=== PATIENT | female | born 1995 | race Caucasian/White ===

== ENCOUNTER 2020-08-26 10:43 | Emergency (ER) | payer MEDICAID ==
[~2020-08-26] VITALS: Ht 170 cm; Wt 134.0 kg
--- NOTE | 2020-08-26 10:59 | ED Integumentary General ---
General Chief Complaint: Skin/Wound Problems Stated Complaint: RECTAL ABCESS 26 WEEKS Nursing Triage Note: C/O ABSCESS ON L SIDE ON THIGH,RECTAL REGION Source: patient Exam Limitations: no limitations History of Present Illness Date Seen by Provider: August 26, 2020 Time Seen by Provider: 10:48 Initial Comments Patient is a 25-year-old female who is approximately 26 weeks with a twin gestation followed by Dr. Merino who presents to the emergency department with a chief complaint of an abscess to her left buttock. Patient states its been there for about 3 days. She has been taking Tylenol for pain she has been using warm compresses and baths to try and alleviate her symptoms. She states currently the pain is a "3 or 4" it is occasionally higher than that. No drainage from the area. She has not had anything like this before she states she does not believe she is diabetic she is scheduled to have a glucose tolerance test this coming Wednesday. She is also scheduled to see Dr. Merino this coming Wednesday. She states she is feeling babies move. She is having no issues. All other review of systems reviewed and negative except as stated above. Timing/Duration: getting worse Severity: moderate Location: genitalia (Buttock) Associated Symptoms: denies symptoms Allergies and Home Medications Allergies Coded Allergies: No Known Drug Allergies (Unverified , 08/26/20) Home Medications No Active Prescriptions or Reported Meds Patient Home Medication List Home Medication List Reviewed: Yes Review of Systems Review of Systems Constitutional: see HPI Respiratory: no symptoms reported Cardiovascular: no symptoms reported Gastrointestinal: no symptoms reported Genitourinary: no symptoms reported Musculoskeletal: no symptoms reported Skin: other (Abscess left buttock) All Other Systems Reviewed Negative Unless Noted: Yes Past Veinmhz-Nfrygt-Bpujji Hx Patient Social History Alcohol Use: Denies Use Smoking Status: Never a Smoker 2nd Hand Smoke Exposure: No Recent Infectious Disease Expo: No Past Medical History Surgeries: Yes Gallbladder Respiratory: No Cardiac: No Neurological: No Genitourinary: No Gastrointestinal: No Musculoskeletal: No Endocrine: No HEENT: No Cancer: No Psychosocial: No Integumentary: No Blood Disorders: No Physical Exam Vital Signs Vital Signs - First Documented 08/26/20 10:51 Temp 36.7 Pulse 13 Resp 18 B/P (MAP) 148/87 (107) Pulse Ox 98 Capillary Refill : Less Than 3 Seconds General Appearance: WD/WN, no apparent distress Cardiovascular: regular rate, rhythm Respiratory: no respiratory distress, no accessory muscle use Gastrointestinal: non tender, soft, other (Obese) Extremities: normal range of motion, normal inspection Neurologic/Psychiatric: alert, normal mood/affect, oriented x 3 Skin: normal color, warm/dry Skin Problem Location: other (Left buttock) Skin Problem Character: abscess (Patient has a 2 cm abscess on the left buttock at the gluteal cleft mid buttock, slightly adjacent to the rectum but not involving the rectum. It is fluctuant and tender to palpation. Mild overlying erythema), erythema Procedures/Interventions I&D : Site: right buttock Blade Size: 11 I & D Procedure: betadine prep, gauze wick placed Packing/Drain: Plain Packing 03/30 (04/01) Progress/Results/Core Measures Results/Orders My Orders Orders - MERLE ALLEN MD Lidocaine 1% Inj 20 Ml (Xylocaine 1% Inj (08/26/20 11:00) Wound Culture (08/26/20 11:00) Hydrocodone/Apap 5/325 Tablet (Lortab 5 (08/26/20 11:12) Medications Given in ED Current Medications Medications Dose Ordered Sig/Alley Route Start Time Stop Time Status Last Admin Dose Admin Acetaminophen/ Hydrocodone Bitart 1 ea STK-MED ONCE .ROUTE 08/26/20 11:12 08/26/20 11:22 DC 08/26/20 11:30 1 EA Lidocaine HCl 20 ml ONCE ONCE INJ 08/26/20 11:00 08/26/20 11:01 DC 08/26/20 11:12 10 ML Vital Signs/I&O 08/26/20 10:51 Temp 36.7 Pulse 13 Resp 18 B/P (MAP) 148/87 (107) Pulse Ox 98 Blood Pressure Mean: 107 Departure Impression Primary Impression: Cutaneous abscess Qualified Codes: L02.31 - Cutaneous abscess of buttock Disposition: HOME, SELF-CARE Condition: Stable Departure-Patient Inst. Decision time for Depature: :31 Referrals: BETTIE MERINO DO (PCP/Family) Primary Care Physician Patient Instructions: Abscess Incision and Drainage Add. Discharge Instructions: Keep the area clean dry and covered until you follow-up with Dr. Merino on Wednesday. The packing will need to be removed and replaced. Please take the antibiotics 3 times a day for the next 7 days. You can wash the area gently with soap and water. Tylenol as needed for pain. I have given you a few hydrocodone to take as needed for more severe pain. Please do not take regular Tylenol and the hydrocodone together as they both contain Tylenol. Return to the emergency room for any fevers, abdominal pain, nausea vomiting or any other emergent concerning symptoms. Scripts Hydrocodone/Acetaminophen (Hydrocodone-Acetamin 5-325 mg) 1 Each Tablet 1 TAB PO Q6H PRN for PAIN-MODERATE (5-7), #10 TAB Prov: MERLE ALLEN MD 08/26/20 Cephalexin (Cephalexin) 500 Mg Tablet 500 MG PO TID, #21 TAB Prov: MERLE ALLEN MD 08/26/20 MERLE ALLEN MD August 26, 2020 10:59
[2020-08-26] MEDS ORDERED: LIDOCAINE 1% INJ 20 ML 20 ML VIAL INJ ONE (11:00)
[2020-08-26] MEDS ORDERED: HYDROcodone/APAP 5 MG/325 MG (LORTAB) TAB ONE (11:12)
[2020-08-26] MEDS ORDERED: ACHD5005 PO (11:33)
[2020-08-26] MEDS ORDERED: CEPH500T PO (11:33)
[2020-08-26 11:38] VITALS: BP 148/87
== END 2020-08-26 11:38 | disposition home or self-care (01) ==
LOC: ER 10:47
DX: O99.712 Diseases of the skin and subcutaneous tissue complicating pregnancy, second trimester (principal); L02.31 Cutaneous abscess of buttock; Z3A.26 26 weeks gestation of pregnancy
CPT/HCPCS: 87070; 87205; 99283

== ENCOUNTER → 2020-09-18 | Outpatient (CLI) | payer MEDICAID ==
[~2020-09-18] MED LIST: ACHD5005 PO; CEPH500T PO
--- NOTE | 2020-09-18 14:25 | Diagnostic Imaging Report ---
INDICATION: Twin , evaluate growth. TECHNIQUE: Multiple real-time grayscale images were obtained over the gravid uterus. COMPARISON: None FINDINGS: Twin live intrauterine is noted. Twin A is in a cephalic presentation with head to the maternal left. heart rate was recorded at 144 bpm. Placenta is anterior. Amniotic fluid index is 10.5 cm. Twin B is in a breech presentation to the maternal right. heart rate was recorded at 153 bpm. Placenta is posterior. Amniotic fluid index is 10.5 cm. Biometrical measurements are as follows: Biparietal 7.46 cm, age 30 weeks 0 days. Head circumference 28.95 cm, age 32 weeks 0 days. Abdominal circumference 27.41 cm, age 31 weeks 4 days. Femur length 5.73 cm, age 30 weeks 1 days. Sonographic estimate age: 31 weeks 0 days. Sonographic estimated date of delivery: 11/20/2020. Estimated Weight: 1669 gm (+/- 244 gm). LMP percentile: 91%. heart rate: 144 beats per minute. number: 1 of 2. IMPRESSION: Twin live intrauterine approximately 31 weeks gestational age. No complicating features are detected. Estimated date of confinement sonographically is a 11/20/2020. Dictated by: Dictated on workstation # [id number]
--- NOTE | 2020-09-20 14:09 | Diagnostic Imaging Report ---
INDICATION: Twin , evaluate growth. TECHNIQUE: Multiple real-time grayscale images were obtained over the gravid uterus. COMPARISON: None FINDINGS: Twin live intrauterine is noted. Twin A is in a cephalic presentation with head to the maternal left. heart rate was recorded at 144 bpm. Placenta is anterior. Amniotic fluid index is 10.5 cm. Twin B is in a breech presentation to the maternal right. heart rate was recorded at 153 bpm. Placenta is posterior. Amniotic fluid index is 10.5 cm. Biometrical measurements are as follows: Biparietal 7.46 cm, age 30 weeks 0 days. Head circumference 28.95 cm, age 32 weeks 0 days. Abdominal circumference 27.41 cm, age 31 weeks 4 days. Femur length 5.73 cm, age 30 weeks 1 days. Sonographic estimate age: 31 weeks 0 days. Sonographic estimated date of delivery: 11/20/2020. Estimated Weight: 1669 gm (+/- 244 gm). LMP percentile: 91%. heart rate: 144 beats per minute. number: 1 of 2. IMPRESSION: Twin live intrauterine approximately 31 weeks gestational age. No complicating features are detected. Estimated date of confinement sonographically is a 11/20/2020. Biometrical measurements are as follows: Biparietal 7.83 cm, age 31 weeks 3 days. Head circumference 28.27 cm, age 31 weeks 1 days. Abdominal circumference 27.04 cm, age 31 weeks 1 days. Femur length 6.05 cm, age 31 weeks 4 days. Sonographic estimate age: 31 weeks 3 days. Sonographic estimated date of delivery: 11/17/2020. Estimated Weight: 1728 gm (+/- 252 gm). LMP percentile: 95%. heart rate: 153 beats per minute. number: 2 of 2. IMPRESSION: Dictated by: Dictated on workstation # [id number]
== END ==
LOC: RAD 12:30
PROVIDERS: ATTEND Obstetrics & Gynecology
DX: O30.043 Twin pregnancy, dichorionic/diamniotic, third trimester (principal); Z3A.31 31 weeks gestation of pregnancy
CPT/HCPCS: 76805; 76810

== ENCOUNTER → 2020-10-22 | Outpatient (CLI) | payer MEDICAID ==
[~2020-10-22] MED LIST changes: +ASPI-999 PO; +PREN-37 PO
--- NOTE | 2020-10-22 14:37 | Diagnostic Imaging Report ---
INDICATION: Follow-up growth. Twin gestation. TECHNIQUE: Multiple real-time grayscale images were obtained over the gravid uterus. COMPARISON: 09/18/2020. FINDINGS: Live diamniotic, dichorionic twin intrauterine is visualized. Baby A is in cephalic presentation to the maternal left. COLT is normal with the total COLT measuring 9 cm. The placenta is anterior and to the left. heart tones measure 161 bpm. Biometrical measurements are as follows: Biparietal 8.4 cm, age 33 weeks 6 days. Head circumference 32.7 cm, age 37 weeks 1 days. Abdominal circumference 33.4 cm, age 37 weeks 3 days. Femur length 6.7 cm, age 34 weeks 3 days. Sonographic estimate age: 35 weeks 5 days. Sonographic estimated date of delivery: 11/21/20. Estimated Weight: 2871 gm (+/- 419 gm). LMP percentile: 93%. heart rate: 161 beats per minute. number: 1 of 2. Views of the adnexa are unremarkable. IMPRESSION: 1. Live diamnionic dichorionic twin intrauterine . Baby A measures 35 weeks 5 days, within range with clinical dates. Recommend follow-up as indicated. Dictated by: Dictated on workstation # [id number]
--- NOTE | 2020-10-22 14:41 | Diagnostic Imaging Report ---
INDICATION: Evaluate growth. Twin . TECHNIQUE: Multiple real-time grayscale images were obtained over the gravid uterus. COMPARISON: 09/18/2020. FINDINGS: Live diamniotic, dichorionic twin intrauterine is visualized. Baby B measures 36 weeks 2 days. Baby B is in cephalic presentation to the maternal right. The amniotic fluid measures 12.8 cm. The placenta is anterior and right. heart tones measure 167 bpm. Biometrical measurements are as follows: Biparietal 8.7 cm, age 35 weeks 1 days. Head circumference 32.3 cm, age 36 weeks 4 days. Abdominal circumference 34 cm, age 38 weeks 0 days. Femur length 6.9 cm, age 35 weeks 2 days. Sonographic estimate age: 36 weeks 2 days. Sonographic estimated date of delivery: 11/17/2020. Estimated Weight: 3039 gm (+/- 444 gm). LMP percentile: 98%. heart rate: 165 beats per minute. number: 2 of 2. The bilateral adnexa have a normal appearance. IMPRESSION: 1. Live diamniotic, dichorionic twin intrauterine . BPD measures 36 weeks 2 days with an estimated due date of 11/17/2020. These are somewhat discordant with the clinical dates. Recommend follow-up as indicated. Dictated by: Dictated on workstation # [id number]
== END ==
LOC: RAD 13:00
PROVIDERS: ATTEND Obstetrics & Gynecology
DX: O30.043 Twin pregnancy, dichorionic/diamniotic, third trimester (principal); Z3A.36 36 weeks gestation of pregnancy
CPT/HCPCS: 76805; 76810

== ENCOUNTER 2020-10-25 00:24 | Outpatient (CLI) | payer MEDICAID ==
[~2020-10-25] VITALS: Ht 170 cm; Wt 134.2 kg
[2020-10-25] VITALS (7 sets, daily range): BP systolic 124–158; BP diastolic 82–100
[~2020-10-25 00:24] MED LIST changes: -ASPI-999 PO; -PREN-37 PO
[2020-10-25 01:08] LABS: BILIRUBIN,URINE NEGATIVE (NEGATIVE); CLARITY,URINE SL CLOUDY; COLOR,URINE YELLOW; GLUCOSE, URINE (UA) NEGATIVE (NEGATIVE); KETONES,URINE NEGATIVE (NEGATIVE); LEUKOCYTE ESTERASE ,URINE NEGATIVE (NEGATIVE); NITRITE,URINE NEGATIVE (NEGATIVE); PH,URINE 6.5 (5-9); PROTEIN,URINE TRACE (NEGATIVE)
[2020-10-25 01:16] LABS: BACTERIA,URINE FEW /HPF; HYALINE CASTS, URINE RARE /LPF
[2020-10-25 01:50] LABS: BASOPHILS % (AUTO) 0 % (0-10); EOSINOPHILS # (AUTO) 0.1 10^3/uL (0.0-0.3); EOSINOPHILS % (AUTO) 1 % (0-10); HEMATOCRIT 33 % (35-52); HEMOGLOBIN 10.7 g/dL (11.5-16.0); LYMPHOCYTES # (AUTO) 2.5 10^3/uL (1.0-4.0); LYMPHOCYTES % (AUTO) 21 % (12-44); MEAN CORPUSCULAR HEMOGLOBIN 28 pg (25-34); MEAN CORPUSCULAR HGB CONC 33 g/dL (32-36); MEAN CORPUSCULAR VOLUME 85 fL (80-99); MEAN PLATELET VOLUME 11.5 fL (9.0-12.2); MONOCYTES # (AUTO) 0.6 10^3/uL (0.0-1.0); MONOCYTES % (AUTO) 5 % (0-12); NEUTROPHILS # (AUTO) 8.8 10^3/uL (1.8-7.8); NEUTROPHILS % (AUTO) 73 % (42-75); PLATELET COUNT 291 10^3/uL (130-400); WHITE BLOOD COUNT 12.1 10^3/uL (4.3-11.0)
[2020-10-25 02:01] LABS: ALBUMIN 3.1 GM/DL (3.2-4.5); POTASSIUM 3.9 MMOL/L (3.6-5.0)
[2020-10-25 02:04] LABS: TOTAL PROTEIN 6.7 GM/DL (6.4-8.2)
[2020-10-25 02:06] LABS: BILIRUBIN,TOTAL 0.3 MG/DL (0.1-1.0)
[2020-10-25 02:07] LABS: CREATININE SERUM 0.65 MG/DL (0.60-1.30)
[2020-10-25 02:11] LABS: URIC ACID 4.5 MG/DL (2.6-7.2)
[2020-10-25] MEDS ORDERED: PREN-37 PO (02:57)
[2020-10-25] MEDS ORDERED: ASPI-999 PO (02:57)
== END 2020-10-25 03:20 | disposition home or self-care (01) ==
LOC: WSo 00:24 → LDRP 00:25 → WSo 03:20
PROVIDERS: ATTEND Obstetrics & Gynecology
DX: O21.9 Vomiting of pregnancy, unspecified (principal); Z3A.34 34 weeks gestation of pregnancy
CPT/HCPCS: 80053; 81000; 82570; 84156; 84550; 85025; G0463; 36415; 99213

== ENCOUNTER 2020-11-04 14:20 | Inpatient (IN) | payer MEDICAID ==
[2020-11-04] VITALS (54 sets, daily range): BP systolic 98–164; BP diastolic 49–94
[~2020-11-04] VITALS: Ht 170 cm; Wt 134.0 kg
[~2020-11-04 14:20] MED LIST changes: +ASPI-999 PO; +PREN-37 PO
[2020-11-04] MEDS ORDERED: D5 LR IV SOLUTION 1,000 ML IV ONE (14:29)
[2020-11-04] MEDS: D5 LR IV SOLUTION 1,000 ML IV SCH ×2 (14:53→19:51)
[2020-11-04 15:41] LABS: BASOPHILS % (AUTO) 0 % (0-10); EOSINOPHILS % (AUTO) 0 % (0-10); HEMATOCRIT 37 % (35-52); HEMOGLOBIN 12.4 g/dL (11.5-16.0); LYMPHOCYTES % (AUTO) 16 % (12-44); MEAN CORPUSCULAR HEMOGLOBIN 28 pg (25-34); MEAN CORPUSCULAR HGB CONC 34 g/dL (32-36); MEAN CORPUSCULAR VOLUME 83 fL (80-99); MEAN PLATELET VOLUME 11.5 fL (9.0-12.2); MONOCYTES # (AUTO) 0.5 10^3/uL (0.0-1.0); MONOCYTES % (AUTO) 4 % (0-12); NEUTROPHILS % (AUTO) 80 % (42-75); PLATELET COUNT 323 10^3/uL (130-400); WHITE BLOOD COUNT 12.6 10^3/uL (4.3-11.0)
[2020-11-04 15:42] LABS: BILIRUBIN,URINE 2+ (NEGATIVE); CLARITY,URINE CLEAR; COLOR,URINE AMBER; GLUCOSE, URINE (UA) TRACE (NEGATIVE); KETONES,URINE 1+ (NEGATIVE); LEUKOCYTE ESTERASE ,URINE TRACE (NEGATIVE); NITRITE,URINE POSITIVE (NEGATIVE); PH,URINE 5.5 (5-9); PROTEIN,URINE 3+ (NEGATIVE)
[2020-11-04] MEDS ORDERED: MINERAL OIL CONCENTRATE 99.9% 15 ML UDC TOP PRN (15:45)
[2020-11-04 15:49] LABS: BACTERIA,URINE LARGE /HPF; SQUAMOUS EPITHELIAL CELL,UR 25-50 /HPF
[2020-11-04] MEDS ORDERED: ceFAZolin 2 GM IV Premixed 50 ML IV NR (16:15)
[2020-11-04] MEDS ORDERED: fentaNYL 2 mcg/ml BUPIVA 0.125 100 ML ONE (16:40)
--- NOTE | 2020-11-04 16:48 | History & Physical-OB ---
OB - Chief Complaint & HPI Date/Time Date of Admission: Date of Admission: Nov 04, 2020 at 14:27 Date seen by a Provider: Nov 04, 2020 Time Seen by a Provider: 16:40 Chief Complaint/History OB-Reason for Admission/Chief: twin gestation Hx : 2 Hx Para: 1 Expected Date of Delivery: Dec 02, 2020 Gestational Age in Weeks: 36 Gestational Age in Days: 0 Allergies and Home Medications Allergies Coded Allergies: No Known Drug Allergies (Unverified , 08/26/20) Home Medications Aspirin 81 Mg Tab.chew, 81 MG PO DAILY, (Reported) Vit/Iron Fumarate/FA 1 Each Tablet, 1 EACH PO DAILY, (Reported) OB - History Social History/Family History 2nd Hand Smoke Exposure: No Immunizations Hepatitis A: No Hepatitis B: No OB - Admission Exam Physical Exam Vitals: Vital Signs 11/04/20 11/04/20 15:20 15:57 Temp 36.5 Pulse 120 Resp 18 B/P (MAP) 122/75 (91) Pulse Ox 97 O2 Delivery Room Air Labs Laboratory Tests Test 11/04/20 14:45 Range/Units White Blood Count 12.6 H 4.3-11.0 10^3/uL Red Blood Count 4.45 3.80-5.11 10^6/uL Hemoglobin 12.4 11.5-16.0 g/dL Hematocrit 37 35-52 % Mean Corpuscular Volume 83 80-99 fL Mean Corpuscular Hemoglobin 28 25-34 pg Mean Corpuscular Hemoglobin Concent 34 32-36 g/dL Red Cell Distribution Width 14.6 H 10.0-14.5 % Platelet Count 323 130-400 10^3/uL Mean Platelet Volume 11.5 9.0-12.2 fL Immature Granulocyte % (Auto) 0 % Neutrophils (%) (Auto) 80 H 42-75 % Lymphocytes (%) (Auto) 16 12-44 % Monocytes (%) (Auto) 4 0-12 % Eosinophils (%) (Auto) 0 0-10 % Basophils (%) (Auto) 0 0-10 % Neutrophils # (Auto) 10.0 H 1.8-7.8 10^3/uL Lymphocytes # (Auto) 2.0 1.0-4.0 10^3/uL Monocytes # (Auto) 0.5 0.0-1.0 10^3/uL Eosinophils # (Auto) 0.0 0.0-0.3 10^3/uL Basophils # (Auto) 0.0 0.0-0.1 10^3/uL Immature Granulocyte # (Auto) 0.0 0.0-0.1 10^3/uL Urine Color VALDEZ H Urine Clarity CLEAR Urine pH 5.5 5-9 Urine Specific [place] >=1.030 1.016-1.022 Urine Protein 3+ H NEGATIVE Urine Glucose (UA) TRACE H NEGATIVE Urine Ketones 1+ H NEGATIVE Urine Nitrite POSITIVE H NEGATIVE Urine Bilirubin 2+ H NEGATIVE Urine Urobilinogen 1.0 < = 1.0 MG/DL Urine Leukocyte Esterase TRACE H NEGATIVE Urine RBC (Auto) NEGATIVE NEGATIVE Urine RBC NONE /HPF Urine WBC 10-25 H /HPF Urine Squamous Epithelial Cells 25-50 H /HPF Urine Renal Epithelial Cells NONE /HPF Urine Crystals NONE /LPF Urine Bacteria LARGE H /HPF Urine Casts NONE /LPF Urine Mucus NEGATIVE /LPF Urine Culture Indicated YES BETTIE MERINO DO Nov 04, 2020 16:48
[2020-11-04 16:59] LABS: ALBUMIN 3.4 GM/DL (3.2-4.5)
[2020-11-04 17:00] LABS: POTASSIUM 4.1 MMOL/L (3.6-5.0)
[2020-11-04 17:01] LABS: CALCIUM 9.5 MG/DL (8.5-10.1)
[2020-11-04 17:02] LABS: TOTAL PROTEIN 7.5 GM/DL (6.4-8.2)
[2020-11-04 17:04] LABS: BILIRUBIN,TOTAL 0.6 MG/DL (0.1-1.0)
[2020-11-04 17:05] LABS: CREATININE SERUM 0.75 MG/DL (0.60-1.30)
[2020-11-04] MEDS ORDERED: BUPIVACAINE 0.25% 30 ML (SENSORCAINE) VIAL ONE (17:16)
[2020-11-04] MEDS ORDERED: fentaNYL INJ 100 MCG/2 ML AMP ONE (17:16)
[2020-11-04] MEDS: EPIDURAL (fentaNYL 2 MCG/ML BUPIVA 0.125%)100 ML BAG EPI PRN (17:42)
[2020-11-04] MEDS ORDERED: fentaNYL INJ 100 MCG/2 ML AMP INJ ONE (18:15)
[2020-11-04] MEDS ORDERED: NALOXONE 0.4 MG/ML 1 ML (NARCAN) VIAL IV PRN (18:15)
[2020-11-04] MEDS ORDERED: ONDANSETRON 4 MG/2 ML (SDV) Z0FRAN IV PRN (18:15)
[2020-11-04] MEDS ORDERED: LACTATED RINGERS 1,000 ML IV ONE ×2 (18:15)
[2020-11-04] MEDS ORDERED: CATHETER FLUSH 10 ML SYR IV SCH (22:00)
[2020-11-05] VITALS (38 sets, daily range): BP systolic 103–168; BP diastolic 57–98
[2020-11-05] MEDS: EPIDURAL (fentaNYL 2 MCG/ML BUPIVA 0.125%)100 ML BAG EPI PRN (00:53)
[2020-11-05] MEDS ORDERED: ceFAZolin 2 GM IV Premixed 50 ML IV NR (01:00)
[2020-11-05] MEDS ORDERED: ceFAZolin INJECTION 1,000 MG in WATER (STERILE) FOR INJECTION 10 ML IV SCH (01:00)
[2020-11-05 03:51] LABS: ALBUMIN 3.1 GM/DL (3.2-4.5)
[2020-11-05 03:52] LABS: POTASSIUM 4.2 MMOL/L (3.6-5.0)
[2020-11-05 03:53] LABS: CALCIUM 9.2 MG/DL (8.5-10.1)
[2020-11-05] MEDS: D5 LR IV SOLUTION 1,000 ML IV SCH (03:53)
[2020-11-05 03:54] LABS: TOTAL PROTEIN 6.7 GM/DL (6.4-8.2)
[2020-11-05 03:56] LABS: BILIRUBIN,TOTAL 0.7 MG/DL (0.1-1.0)
[2020-11-05 03:58] LABS: CREATININE SERUM 0.72 MG/DL (0.60-1.30)
[2020-11-05] MEDS ORDERED: OXYTOCIN PRE-MIX DRIP 500 ML IV SCH ×2 (05:45→09:15)
[2020-11-05] MEDS ORDERED: BUPIVACAINE 0.25% 30 ML (SENSORCAINE) VIAL ONE (08:05)
--- NOTE | 2020-11-05 09:03 | OB Labor & Delivery Record ---
Vag Delivery Note Vag Delivery Note Date of Delivery: 11/05/20 Preoperative Diagnosis: Marla Coyne is a (25 /Para 2 / 1,Gestational Age (wks)36with [] Postoperative Diagnosis: Same Surgeon: BETTIE MERINO Anesthesia: [] Delivery Type: x two/twins Findings: [] Viable male infants, apgars , weight 6#13ounces, B 5#13ounces Lacerations: no Intact placenta with 3 vessel cord. No nuchal cord, body cord or shoulder dystocia Estimated Blood Loss: 400 ml Complications: None Condition: Stable Description of Procedure: The patient is a 25 year old female who presented []. She was admitted and informed consent was obtained. Her labor course was remarkable for [] She progressed to complete dilatation and began to push. She was then set up for delivery. The 's head was delivered atraumatically in the [] position. The shoulders and remainder of the infant's body were then delivered without difficulty. Upon delivery, the head was held below the level of the perineum and the mouth and nares were bulb suctioned. The cord was doubly clamped and cut and the infant was handed off to the pediatric staff. An intact placenta with 3-vessel cord delivered via Chris and there was found to be minimal bleeding.~ Vigorous fundal massage was performed and the fundus was found to be firm. IV oxytocin was given. Examination of the vagina and perineum revealed a [] laceration repaired in the usual fashion with 3-0 vicryl suture. Following the repair, sponge, instrument and needle counts were correct. Mom and baby were both in stable condition in the labor suite. Vitals - Labs Vital Signs - I&O Vital Signs Date Time Temp Pulse Resp B/P (MAP) Pulse Ox O2 Delivery O2 Flow Rate FiO2 11/05/20 07:00 100 18 103/57 (72) 96 Room Air 11/05/20 06:45 82 18 131/81 (98) 93 Room Air 11/05/20 06:30 91 18 135/84 (101) 97 Room Air 11/05/20 06:15 105 18 139/93 (108) 96 Room Air 11/05/20 06:00 104 18 131/89 (103) 97 Room Air 11/05/20 05:45 123 18 128/79 (95) 98 Room Air 11/05/20 05:30 121 18 136/81 (99) 98 Room Air 11/05/20 05:15 96 18 140/81 (100) 94 Room Air 11/05/20 05:00 101 18 137/75 (95) 97 Room Air 11/05/20 04:45 81 18 127/73 (91) 97 Room Air 11/05/20 04:30 36.7 92 18 130/69 (89) 97 Room Air 11/05/20 04:15 115 18 124/80 (95) 96 Room Air 11/05/20 04:00 117 18 128/87 (101) 99 Room Air 11/05/20 03:45 112 18 143/96 (112) 96 Room Air 11/05/20 03:30 112 18 129/80 (96) 96 Room Air 11/05/20 03:15 96 18 137/82 (100) 96 Room Air 11/05/20 03:00 98 18 139/81 (100) 98 Room Air 11/05/20 02:45 94 18 134/86 (102) 98 Room Air 11/05/20 02:30 111 18 152/85 (107) 98 Room Air 11/05/20 02:15 113 18 153/85 (107) 97 Room Air 11/05/20 02:00 82 18 129/78 (95) 97 Room Air 11/05/20 01:45 82 18 113/71 (85) 97 Room Air 11/05/20 01:30 97 Room Air 11/05/20 01:15 80 18 115/68 (84) 95 Room Air 11/05/20 01:00 105 18 131/89 (103) 97 Room Air 11/05/20 00:30 131 18 131/81 (98) 97 Room Air 11/05/20 00:00 18 100 11/04/20 23:45 108 18 155/76 (102) 97 Room Air 11/04/20 23:30 96 18 135/68 (90) 97 Room Air 11/04/20 23:00 94 18 117/80 (92) 100 Room Air 11/04/20 22:45 89 18 115/73 (87) 98 Room Air 11/04/20 22:30 83 18 120/77 (91) 97 Room Air 11/04/20 22:15 82 18 122/75 (91) 99 Room Air 11/04/20 22:00 106 18 129/84 (99) 98 Room Air 11/04/20 21:45 95 18 123/79 (94) 100 Room Air 11/04/20 21:30 105 18 109/56 (73) 97 Room Air 11/04/20 21:15 113 18 128/86 (100) 98 Room Air 11/04/20 21:00 106 18 129/81 (97) 98 Room Air 11/04/20 20:45 99 18 135/79 (97) 98 Room Air 11/04/20 20:30 121 18 133/58 (83) 98 Room Air 11/04/20 20:15 108 18 115/58 (77) 97 Room Air 11/04/20 20:00 112 18 128/80 (96) 99 Room Air 11/04/20 19:45 36.4 125 18 118/66 (83) 96 Room Air 11/04/20 19:30 137 18 109/59 (76) 99 Room Air 11/04/20 19:14 117 18 129/87 (101) 99 Room Air 11/04/20 19:00 123 111/82 (92) 98 11/04/20 18:50 127 120/75 (90) 98 11/04/20 18:45 131 122/84 (97) 98 11/04/20 18:40 133 130/87 (101) 99 Room Air 11/04/20 18:33 125 126/73 (90) 100 Room Air 11/04/20 18:30 117 109/76 (87) 97 11/04/20 18:28 117 20 109/76 (87) 98 11/04/20 18:22 114 108/75 (86) 97 11/04/20 18:15 104 20 98/50 (66) 97 11/04/20 18:10 111 97 112/57 (75) 11/04/20 18:04 127 108/63 (78) 97 11/04/20 18:02 133 98/54 (69) 97 Room Air 11/04/20 18:00 125 20 106/64 (78) 97 11/04/20 17:58 127 104/62 (76) 97 11/04/20 17:55 108 102/49 (66) 97 11/04/20 17:52 112 20 113/68 (83) 98 11/04/20 17:50 118 111/66 (81) 98 Room Air 11/04/20 17:47 112 110/68 (82) 98 11/04/20 17:45 117 20 103/60 (74) 98 11/04/20 17:40 119 122/58 (79) 98 Room Air 11/04/20 17:38 110 20 102/57 (72) 96 Room Air 11/04/20 17:36 117 20 107/56 (73) 96 Room Air 11/04/20 17:26 116 20 152/91 (111) 96 Room Air 11/04/20 17:22 151 24 159/94 (115) 96 Room Air 11/04/20 17:10 116 131/76 (94) 97 Room Air 11/04/20 17:00 121 18 123/79 (94) 97 Room Air 11/04/20 16:45 111 18 131/93 (106) 97 Room Air 11/04/20 16:30 130 112/62 (79) 96 Room Air 11/04/20 16:15 122 125/77 (93) 97 Room Air 11/04/20 15:57 36.5 120 18 97 Room Air 11/04/20 15:50 36.5 121 18 126/78 (94) 97 11/04/20 15:45 125 18 123/74 (90) 98 Room Air 11/04/20 15:45 125 18 98 Room Air 11/04/20 15:20 120 18 122/75 (91) 97 Room Air 11/04/20 15:05 137 18 127/81 (96) 99 Room Air 11/04/20 14:50 36.3 145 18 97 Room Air 11/04/20 14:45 36.3 145 18 164/93 (116) 97 Room Air I & O 11/05/20 06:59 Intake Total 3050 ml Balance 3050 ml Labs Laboratory Tests 11/04/20 14:45: White Blood Count 12.6H, Red Blood Count 4.45, Hemoglobin 12.4, Hematocrit 37, Mean Corpuscular Volume 83, Mean Corpuscular Hemoglobin 28, Mean Corpuscular Hemoglobin Concent 34, Red Cell Distribution Width 14.6H, Platelet Count 323, Mean Platelet Volume 11.5, Immature Granulocyte % (Auto) 0, Neutrophils (%) (Auto) 80H, Lymphocytes (%) (Auto) 16, Monocytes (%) (Auto) 4, Eosinophils (%) (Auto) 0, Basophils (%) (Auto) 0, Neutrophils # (Auto) 10.0H, Lymphocytes # (Auto) 2.0, Monocytes # (Auto) 0.5, Eosinophils # (Auto) 0.0, Basophils # (Auto) 0.0, Immature Granulocyte # (Auto) 0.0, Urine Color AMBERH, Urine Clarity VANESSA AR, Urine pH 5.5, Urine Specific [place] >=1.030, Urine Protein 3+H, Urine Glucose (UA) TRACEH, Urine Ketones 1+H, Urine Nitrite POSITIVEH, Urine Bilirubin 2+H, Urine Urobilinogen 1.0, Urine Leukocyte Esterase TRACEH, Urine RBC (Auto) NEGATIVE, Urine RBC NONE, Urine WBC 10-25H, Urine Squamous Epithelial Cells 25- 50H, Urine Renal Epithelial Cells NONE, Urine Crystals NONE, Urine Bacteria LARGEH, Urine Casts NONE, Urine Mucus NEGATIVE, Urine Culture Indicated YES, Sodium Level 139, Potassium Level 4.1, Chloride Level 107, Carbon Dioxide Level 18L, Anion Gap 14, Blood Urea Nitrogen 5L, Creatinine 0.75, Estimat Glomerular Filtration Rate 96, BUN/Creatinine Ratio 7, Glucose Level 76, Calcium Level 9.5, Corrected Calcium 10.0, Total Bilirubin 0.6, Aspartate Amino Transf (AST/SGOT) 15, Alanine Aminotransferase (ALT/SGPT) 10, Alkaline Phosphatase 218H, Lactate Dehydrogenase 193, Total Protein 7.5, Albumin 3.4 11/04/20 18:45: Urine Protein 90H, Urine Creatinine 471H, Urine Protein/Creatinine Ratio 0.19 11/05/20 03:35: Sodium Level 138, Potassium Level 4.2, Chloride Level 106, Carbon Dioxide Level 19L, Anion Gap 13, Blood Urea Nitrogen 7, Creatinine 0.72, Estimat Glomerular Filtration Rate 100, BUN/Creatinine Ratio 10, Glucose Level 95, Calcium Level 9.2, Corrected Calcium 9.9, Total Bilirubin 0.7, Aspartate Amino Transf (AST/SGOT) 17, Alanine Aminotransferase (ALT/SGPT) 9, Alkaline Phosphatase 191H, Total Protein 6.7, Albumin 3.1L BETTIE MERINO DO Nov 05, 2020 09:03
[2020-11-05] MEDS ORDERED: TETANUS,DIPTH,PERTUSS P/F (BOOSTRIX) 0.5 ML VIAL IM ONE (09:15)
[2020-11-05] MEDS ORDERED: WITCH HAZEL(TUCKS) 40 EA JAR TOP PRN (09:15)
[2020-11-05] MEDS ORDERED: DIBUCAINE 1% OINTMENT 30 GM TUBE TOP PRN (09:15)
[2020-11-05] MEDS ORDERED: BENZOCAINE/MENTHOL (DERMOPLAST) 56 ML CAN TP PRN (09:15)
[2020-11-05] MEDS ORDERED: MEASLES,MUMPS,RUBELLA 1 EA INJ SQ ONE (09:15)
[2020-11-05] MEDS ORDERED: NALOXONE 0.4 MG/ML 1 ML (NARCAN) VIAL IV PRN (09:15)
[2020-11-05] MEDS ORDERED: LACTATED RINGERS 1,000 ML IV ONE (10:14)
[2020-11-05 10:39] LABS: CREATININE SERUM 0.7 MG/DL (0.60-1.30)
[2020-11-05] MEDS: LACTATED RINGERS 1,000 ML IV SCH ×3 (10:41→15:28)
[2020-11-05] MEDS: ACETAMINOPHEN 500 MG TAB (TYLENOL) PO SCH ×2 (11:53→18:06)
[2020-11-05] MEDS: IBUPROFEN 600 MG (MOTRIN) TAB PO SCH ×2 (11:53→18:06)
[2020-11-05] MEDS: CATHETER FLUSH 10 ML SYR IV SCH (13:18)
[2020-11-05] MEDS: DOCUSATE SODIUM 100 MG (COLACE) CAP PO SCH (22:05)
[2020-11-06 00:55] VITALS: BP 131/76
[2020-11-06] MEDS: IBUPROFEN 600 MG (MOTRIN) TAB PO SCH ×4 (00:55→20:04)
[2020-11-06] MEDS: ACETAMINOPHEN 500 MG TAB (TYLENOL) PO SCH (00:55)
[2020-11-06] MEDS: CATHETER FLUSH 10 ML SYR IV SCH (01:10)
[2020-11-06 05:00] VITALS: BP 131/83
[2020-11-06 06:40] LABS: BASOPHILS # (AUTO) 0.1 10^3/uL (0.0-0.1); BASOPHILS % (AUTO) 1 % (0-10); EOSINOPHILS # (AUTO) 0.1 10^3/uL (0.0-0.3); EOSINOPHILS % (AUTO) 1 % (0-10); HEMATOCRIT 30 % (35-52); HEMOGLOBIN 9.9 g/dL (11.5-16.0); LYMPHOCYTES # (AUTO) 3.3 10^3/uL (1.0-4.0); LYMPHOCYTES % (AUTO) 27 % (12-44); MEAN CORPUSCULAR HEMOGLOBIN 28 pg (25-34); MEAN CORPUSCULAR HGB CONC 33 g/dL (32-36); MEAN CORPUSCULAR VOLUME 85 fL (80-99); MEAN PLATELET VOLUME 11.2 fL (9.0-12.2); MONOCYTES # (AUTO) 0.7 10^3/uL (0.0-1.0); MONOCYTES % (AUTO) 5 % (0-12); NEUTROPHILS % (AUTO) 66 % (42-75); PLATELET COUNT 255 10^3/uL (130-400); WHITE BLOOD COUNT 12.1 10^3/uL (4.3-11.0)
[2020-11-06 08:15] VITALS: BP 160/95
[2020-11-06] MEDS: DOCUSATE SODIUM 100 MG (COLACE) CAP PO SCH ×2 (08:18→20:04)
[2020-11-06] MEDS: PRENATAL VITAMIN 1 EA TAB PO SCH (08:18)
[2020-11-06] MEDS: FERROUS SULF 325 MG (IRON) TAB PO SCH (08:18)
[2020-11-06] MEDS ORDERED: IBUP-844 PO (08:54)
[2020-11-06] MEDS ORDERED: FERR325T24 PO (08:54)
[2020-11-06] MEDS ORDERED: ACET-93 PO (08:54)
[2020-11-06] MEDS ORDERED: COVID-19 VACC,MRNA(MODERNA)/PF 100 MCG/0.5 ML VIAL IM ONE (09:00)
--- NOTE | 2020-11-06 11:27 | Postpartum Progress Note ---
Note Note Day # 1 Subjective: Patient is without complaints. Ambulating, voiding. Tolerating a regular diet without nausea or vomiting. Normal lochia. Pain is well controlled with oral pain medications. Breast feeding. Would like to remain in hospital another day so she can be DC'd with babies. Objective: Physical Exam: General - Alert and oriented, no apparent distress Abdomen - Soft, appropriately tender to palpation, non-distended, fundus firm at umbilicus Extremities - no edema, negative Jorge's bilaterally Assessment: Post- day # 1, status post vaginal delivery, twins. Recovering well, hemodynamically stable Acute blood loss anemia Plan: Routine care. Encourage breast feeding. Encourage ambulation. Ferrous sulfate supplementation. Plan for discharge tomorrow, 11/07 Vitals - Labs Vital Signs - I&O Vital Signs Date Time Temp Pulse Resp B/P (MAP) Pulse Ox O2 Delivery O2 Flow Rate FiO2 11/06/20 08:15 36.5 65 18 160/95 (116) 98 Room Air 11/06/20 05:00 36.8 81 18 131/83 (99) 99 Room Air 11/06/20 00:55 36.6 76 18 131/76 (94) 98 Room Air 11/05/20 20:00 36.1 68 18 136/86 (103) 98 Room Air 11/05/20 15:35 36.6 60 18 117/66 (83) 98 Room Air 11/05/20 12:00 36.6 88 18 145/77 (99) 98 Room Air I & O 11/06/20 07:00 Intake Total 4500 ml Output Total 1375 ml Balance 3125 ml Labs Laboratory Tests 11/06/20 06:25: White Blood Count 12.1H, Red Blood Count 3.55L, Hemoglobin 9.9#L, Hematocrit 30L , Mean Corpuscular Volume 85, Mean Corpuscular Hemoglobin 28, Mean Corpuscular Hemoglobin Concent 33, Red Cell Distribution Width 14.6H, Platelet Count 255, Mean Platelet Volume 11.2, Immature Granulocyte % (Auto) 0, Neutrophils (%) (Auto) 66, Lymphocytes (%) (Auto) 27, Monocytes (%) (Auto) 5, Eosinophils (%) (Auto) 1, Basophils (%) (Auto) 1, Neutrophils # (Auto) 8.0H, Lymphocytes # (Auto) 3.3, Monocytes # (Auto) 0.7, Eosinophils # (Auto) 0.1, Basophils # (Auto) 0.1, Immature Granulocyte # (Auto) 0.1 Microbiology 11/04/20 Urine Culture - Final, Complete Lactobacillus species See Comments ROSITA FIELD CHAIN HOOKER Nov 06, 2020 11:26
--- NOTE | 2020-11-06 13:36 | Anesthesia-Regional Post-Op ---
Regional Patient Condition Mental Status: Alert, Oriented x3 Circulation: Same as Pre-Op Headache: Absent Sensation: Full Recovery Motor Block: Absent Post Op Complications Complications None Follow Up Care/Instructions Patient Instructions None needed. Anesthesia/Patient Condition Patient is doing well, no complaints, stable vital signs, no apparent adverse anesthesia problems. No complications reported per nursing. TANGELA EDDY CRNA Nov 06, 2020 13:36
[2020-11-06 14:05] VITALS: BP 155/88
[2020-11-06 20:06] VITALS: BP 145/77
[2020-11-07] MEDS: IBUPROFEN 600 MG (MOTRIN) TAB PO SCH ×2 (02:07→09:32)
[2020-11-07 02:12] VITALS: BP 137/81
[2020-11-07 09:10] VITALS: BP 129/70
--- NOTE | 2020-11-07 09:12 | Postpartum Progress Note ---
Note Note Day # 2 Subjective: Patient is without complaints. Ambulating, voiding. Tolerating a regular diet without nausea or vomiting. Normal lochia. Pain is well controlled with oral pain medications. Breast feeding. Objective: Physical Exam: General - Alert and oriented, no apparent distress Abdomen - Soft, appropriately tender to palpation, non-distended, fundus firm at umbilicus Extremities - no edema, negative Jorge's bilaterally Assessment: Post- day # 2, status post spontaneous vaginal delivery (twins). Recovering well, hemodynamically stable Acute blood loss anemia Plan: Routine care. Encourage breast feeding. Encourage ambulation. Ferrous sulfate supplementation. 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
[2020-11-07] MEDS: PRENATAL VITAMIN 1 EA TAB PO SCH (09:31)
[2020-11-07] MEDS: FERROUS SULF 325 MG (IRON) TAB PO SCH (09:31)
[2020-11-07] MEDS: DOCUSATE SODIUM 100 MG (COLACE) CAP PO SCH (09:31)
[2020-11-07] MEDS: ACETAMINOPHEN 500 MG TAB (TYLENOL) PO SCH (09:32)
== END 2020-11-07 13:20 | disposition home or self-care (01) | DRG 806 ==
LOC: WSo 14:20 → LDRP 14:21 → WSo 15:06 → LDRP 11-05 13:00
PROVIDERS: ADMIT Obstetrics & Gynecology; ATTEND Obstetrics & Gynecology
PROC: 10E0XZZ Delivery of Products of Conception, External Approach (ICD-10-PCS; principal; 2020-11-05)
DX: O80 Encounter for full-term uncomplicated delivery (principal); D62 Acute posthemorrhagic anemia; Z37.2 Twins, both liveborn; Z3A.36 36 weeks gestation of pregnancy; Z79.82 Long term (current) use of aspirin; O90.81 Anemia of the puerperium
CPT/HCPCS: 36415; 80053; 81000; 82565; 82570; 83615; 84156; 84520; 85025; 86850; 86900; 86901; 87088

== ENCOUNTER 2021-11-09 10:32 | Emergency (ER) | payer MEDICAID ==
[~2021-11-09] VITALS: Ht 170 cm; Wt 130.0 kg
[~2021-11-09 10:32] MED LIST changes: +ACET-93 PO; +FERR325T24 PO; +IBUP-844 PO
[2021-11-09 11:25] LABS: BASOPHILS # (AUTO) 0.1 10^3/uL (0.0-0.1); BASOPHILS % (AUTO) 1 % (0-10); EOSINOPHILS # (AUTO) 0.2 10^3/uL (0.0-0.3); EOSINOPHILS % (AUTO) 2 % (0-10); HEMATOCRIT 40 % (35-52); HEMOGLOBIN 13.1 g/dL (11.5-16.0); LYMPHOCYTES # (AUTO) 2.5 10^3/uL (1.0-4.0); LYMPHOCYTES % (AUTO) 23 % (12-44); MEAN CORPUSCULAR HEMOGLOBIN 27 pg (25-34); MEAN CORPUSCULAR HGB CONC 33 g/dL (32-36); MEAN CORPUSCULAR VOLUME 82 fL (80-99); MEAN PLATELET VOLUME 10.9 fL (9.0-12.2); MONOCYTES # (AUTO) 0.4 10^3/uL (0.0-1.0); MONOCYTES % (AUTO) 4 % (0-12); NEUTROPHILS # (AUTO) 7.7 10^3/uL (1.8-7.8); NEUTROPHILS % (AUTO) 71 % (42-75); PLATELET COUNT 311 10^3/uL (130-400); WHITE BLOOD COUNT 10.9 10^3/uL (4.3-11.0)
[2021-11-09 11:27] LABS: ALBUMIN 4.6 GM/DL (3.2-4.5); CHLORIDE 106 MMOL/L (98-107); SODIUM 140 MMOL/L (135-145)
[2021-11-09 11:28] LABS: CALCIUM 9.8 MG/DL (8.5-10.1)
[2021-11-09 11:29] LABS: GLUCOSE 100 MG/DL (70-105)
[2021-11-09 11:30] LABS: TOTAL PROTEIN 8.3 GM/DL (6.4-8.2)
[2021-11-09] MEDS ORDERED: ASPIRIN 81 MG CHEW (CHILDREN'S ASA) PO ONE (11:30)
[2021-11-09 11:31] LABS: BILIRUBIN,TOTAL 0.5 MG/DL (0.1-1.0); CARBON DIOXIDE 20 MMOL/L (21-32)
[2021-11-09 11:32] LABS: BILIRUBIN,URINE NEGATIVE (NEGATIVE); CLARITY,URINE CLEAR; COLOR,URINE YELLOW; GLUCOSE, URINE (UA) NEGATIVE (NEGATIVE); KETONES,URINE NEGATIVE (NEGATIVE); LEUKOCYTE ESTERASE ,URINE NEGATIVE (NEGATIVE); NITRITE,URINE NEGATIVE (NEGATIVE); PH,URINE 5.5 (5-9); PROTEIN,URINE NEGATIVE (NEGATIVE)
[2021-11-09 11:33] LABS: ALKALINE PHOSPHATASE 80 U/L (40-136); CREATININE SERUM 0.86 MG/DL (0.60-1.30); GFR ESTIMATED 97
[2021-11-09 11:34] LABS: BUN/CREATININE RATIO 14; PROTHROMBIN TIME PATIENT 13.1 SEC (12.2-14.7)
[2021-11-09 11:36] LABS: ALANINE AMINOTRANSFERASE 29 U/L (0-55)
[2021-11-09 11:38] LABS: MAGNESIUM 2.1 MG/DL (1.6-2.4)
--- NOTE | 2021-11-09 11:38 | ED General ---
General Chief Complaint: Chest Pain Stated Complaint: ABD/CP PAIN, R ARM NUMBNESS Nursing Triage Note: diarrhea stools, and epigastric pain started wednesday then right arm pain yesterday. denies nausea or vomiting. last food yesterday at lunch, last drink this am. History of Present Illness Date Seen by Provider: Nov 09, 2021 Time Seen by Provider: 11:00 Initial Comments 26 year old female presents for diarrhea and epigastric pain for the last 3-4 days. She had one episode of diarrhea today. History of chronic GI constipation and diarrhea, never diagnosed with IBS tries to control with diet. Cholecystoc faith in the past. GERD as child. No GI meds at this time. When symptoms started she was concerned with diarrhea, so she took MiraLax, then began having diarrhea. No household contacts have similar symptoms. Timing/Duration: 3-4 Days Severity: Moderate Associated Systoms: No Chest Pain, No Cough, No Diaphoresis, No Fever/Chills, No Headaches; Loss of Appetite; No Malaise; Nausea/Vomiting; No Rash, No Seizure, No Shortness of Air, No Syncope, No Weakness Allergies and Home Medications Allergies Coded Allergies: No Known Drug Allergies (Unverified , 08/26/20) Patient Home Medication List Home Medication List Reviewed: Yes Acetaminophen (Acetaminophen) 500 Mg Tablet, 1,000 MG PO Q6HR Prescribed by: BETTIE MERINO on 11/06/20 0854 Ferrous Sulfate (Ferosul) 325 Mg Tablet, 325 MG PO DAILY Prescribed by: BETTIE MERINO on 11/06/20 0854 Hyoscyamine Sulfate (Levsin-Sl) 0.125 Mg Tab.subl, 0.125 MG SL Q8H PRN for PAIN- SEE DOSE INSTRUCTIONS Prescribed by: JOE WARNER on 11/09/21 1321 Ibuprofen (Ibu) 600 Mg Tablet, 600 MG PO Q6HR Prescribed by: BETTIE MERINO on 11/06/20 0854 Vit/Iron Fumarate/FA ( Tablet) 1 Each Tablet, 1 EACH PO DAILY, (Reported) Entered as Reported by: CAROL SANTOS on 10/25/20 0257 Review of Systems Review of Systems Constitutional: no symptoms reported, see HPI Gastrointestinal: see HPI, abdominal pain, diarrhea; No heartburn; loss of appetite, nausea; No vomiting : No (Hx of tubal ligation) All Other Systems Reviewed Negative Unless Noted: Yes Past Bnjpzlx-Odwrrm-Bhogfz Hx Patient Social History Tobacco Use?: No Use of E-Cig and/or Vaping dev: No Substance use?: Yes Substance type: Marijuana Substance frequency: Daily Alcohol Use?: Yes Alcohol Frequency: Rarely Pt feels they are or have been: No Immunizations Up To Date Tetanus Booster (TDap): Less than 5yrs Past Medical History Surgeries: Yes Gallbladder Respiratory: No Cardiac: No Neurological: No Last Menstrual Period: Nov 06, 2021 Genitourinary: No Gastrointestinal: No Musculoskeletal: No Endocrine: No HEENT: No Cancer: No Psychosocial: No Integumentary: No Blood Disorders: No Family Medical History Reviewed Nursing Family Hx Physical Exam Vital Signs Vital Signs - First Documented 11/09/21 10:50 Temp 36.7 Pulse 71 Resp 16 B/P (MAP) 129/83 (98) Pulse Ox 97 O2 Delivery Room Air Capillary Refill : Less Than 3 Seconds Height, Weight, BMI Height: '" Weight: lbs. oz. kg; 44.00 BMI Method: General Appearance: No Apparent Distress, WD/WN, Obese HEENT: PERRL/EOMI, TMs Normal, Normal ENT Inspection, Pharynx Normal Neck: Full Range of Motion, Normal Inspection, Non Tender, Supple Respiratory: Chest Non Tender, Lungs Clear, Normal Breath Sounds Cardiovascular: Regular Rate, Rhythm, No Edema, No Murmur, Normal Peripheral Pulses Gastrointestinal: Normal Bowel Sounds, Soft; No Distended, No Guarding, No Rebound; Tenderness (generalized) Extremity: Normal Capillary Refill, Normal Inspection, Normal Range of Motion, Non Tender Neurologic/Psychiatric: Alert, Oriented x3, No Motor/Sensory Deficits, Normal Mood/Affect Skin: Normal Color, Warm/Dry Progress/Results/Core Measures Suspected Sepsis SIRS Temperature: Pulse: 71 Respiratory Rate: 16 Laboratory Tests 11/09/21 10:55: White Blood Count 10.9 Blood Pressure 129 /83 Mean: 98 Laboratory Tests 11/09/21 10:55: Creatinine 0.86, INR Comment 1.0, Platelet Count 311, Total Bilirubin 0.5 Results/Orders Lab Results Laboratory Tests Test 11/09/21 10:55 11/09/21 11:20 Range/Units White Blood Count 10.9 4.3-11.0 10^3/uL Red Blood Count 4.88 3.80-5.11 10^6/uL Hemoglobin 13.1 11.5-16.0 g/dL Hematocrit 40 35-52 % Mean Corpuscular Volume 82 80-99 fL Mean Corpuscular Hemoglobin 27 25-34 pg Mean Corpuscular Hemoglobin Concent 33 32-36 g/dL Red Cell Distribution Width 13.5 10.0-14.5 % Platelet Count 311 130-400 10^3/uL Mean Platelet Volume 10.9 9.0-12.2 fL Immature Granulocyte % (Auto) 0 % Neutrophils (%) (Auto) 71 42-75 % Lymphocytes (%) (Auto) 23 12-44 % Monocytes (%) (Auto) 4 0-12 % Eosinophils (%) (Auto) 2 0-10 % Basophils (%) (Auto) 1 0-10 % Neutrophils # (Auto) 7.7 1.8-7.8 10^3/uL Lymphocytes # (Auto) 2.5 1.0-4.0 10^3/uL Monocytes # (Auto) 0.4 0.0-1.0 10^3/uL Eosinophils # (Auto) 0.2 0.0-0.3 10^3/uL Basophils # (Auto) 0.1 0.0-0.1 10^3/uL Immature Granulocyte # (Auto) 0.0 0.0-0.1 10^3/uL Prothrombin Time 13.1 12.2-14.7 SEC INR Comment 1.0 0.8-1.4 Activated Partial Thromboplast Time 31 24-35 SEC Sodium Level 140 135-145 MMOL/L Potassium Level 4.0 3.6-5.0 MMOL/L Chloride Level 106 98-107 MMOL/L Carbon Dioxide Level 20 L 21-32 MMOL/L Anion Gap 14 5-14 MMOL/L Blood Urea Nitrogen 12 7-18 MG/DL Creatinine 0.86 0.60-1.30 MG/DL Estimat Glomerular Filtration Rate 97 BUN/Creatinine Ratio 14 Glucose Level 100 70-105 MG/DL Calcium Level 9.8 8.5-10.1 MG/DL Corrected Calcium 8.5-10.1 MG/DL Magnesium Level 2.1 1.6-2.4 MG/DL Total Bilirubin 0.5 0.1-1.0 MG/DL Aspartate Amino Transf (AST/SGOT) 17 5-34 U/L Alanine Aminotransferase (ALT/SGPT) 29 0-55 U/L Alkaline Phosphatase 80 40-136 U/L Myoglobin 25.2 10.0-92.0 NG/ML Troponin I < 0.028 <0.028 NG/ML Total Protein 8.3 H 6.4-8.2 GM/DL Albumin 4.6 H 3.2-4.5 GM/DL Amylase Level 37 25-125 U/L Lipase 10 8-78 U/L Urine Color YELLOW Urine Clarity CLEAR Urine pH 5.5 5-9 Urine Specific [place] 1.025 H 1.016-1.022 Urine Protein NEGATIVE NEGATIVE Urine Glucose (UA) NEGATIVE NEGATIVE Urine Ketones NEGATIVE NEGATIVE Urine Nitrite NEGATIVE NEGATIVE Urine Bilirubin NEGATIVE NEGATIVE Urine Urobilinogen 0.2 < = 1.0 MG/DL Urine Leukocyte Esterase NEGATIVE NEGATIVE Urine RBC (Auto) 3+ H NEGATIVE Urine RBC 2-5 H /HPF Urine WBC NONE /HPF Urine Squamous Epithelial Cells 2-5 /HPF Urine Crystals NONE /LPF Urine Bacteria NEGATIVE /HPF Urine Casts NONE /LPF Urine Mucus SMALL H /LPF Urine Culture Indicated NO My Orders Orders - JOE WARNER Cbc With Automated Diff (11/09/21 11:15) Comprehensive Metabolic Panel (11/09/21 11:15) Ua Culture If Indicated (11/09/21 11:15) Magnesium (11/09/21 11:19) Ekg Tracing (11/09/21 11:19) Myoglobin Serum (11/09/21 11:19) Protime With Inr (11/09/21 11:19) Partial Thromboplastin Time (11/09/21 11:19) Monitor-Rhythm Ecg Trace Only (11/09/21 11:19) Troponin I [place] (11/09/21 11:19) Aspirin Chewable Tablet (Baby Aspirin Ch (11/09/21 11:30) Chest 1 View, Ap/Pa Only (11/09/21 11:35) Ct Abdomen/Pelvis Wo (11/09/21 11:43) Pantoprazole Injection (Protonix Injecti (11/09/21 11:43) Ed Iv/Invasive Line Start (11/09/21 11:43) Ns Iv 1000 Ml (Sodium Chloride 0.9%) (11/09/21 11:45) Amylase (11/09/21 11:46) Lipase (11/09/21 11:46) Hyoscyamine Sl Tablet (Levsin Sl Tablet) (11/09/21 13:30) Medications Given in ED Current Medications Medications Dose Ordered Sig/Alley Route Start Time Stop Time Status Last Admin Dose Admin Aspirin 324 mg ONCE ONCE PO 11/09/21 11:30 11/09/21 11:31 DC 11/09/21 11:28 324 MG Hyoscyamine Sulfate 0.125 mg ONCE ONCE SL 11/09/21 13:30 11/09/21 13:31 DC 11/09/21 13:33 0.125 MG Vital Signs/I&O 11/09/21 11/09/21 10:50 13:40 Temp 36.7 Pulse 71 70 Resp 16 18 B/P (MAP) 129/83 (98) 114/81 Pulse Ox 97 100 O2 Delivery Room Air Room Air Capillary Refill : Less Than 3 Seconds Blood Pressure Mean: 98 ECG Initial ECG Impression Date: Nov 09, 2021 Initial ECG Impression Time: 10:56 Initial ECG Rate: 94 Initial ECG Rhythm: Normal Sinus Initial ECG Intervals: Normal Initial ECG Intervals MO 150, QRS D 95, QT 351, QTc 403. [place]iken P 51, R- 9, T12. Initial ECG Impression: Normal Initial ECG Comparisson: No Previous ECG Available Diagnostic Imaging Diagonstic Imaging: Xray Plain Films/CT/US/NM/MRI: chest Comments NAME: DIANE LANGSTON [facility] REC#: [id number] PT STATUS: REG ER : 1995 PHYSICIAN: JOE WARNER ADMIT DATE: 11/09/21/ER Draft Date of Exam:11/09/21 CHEST 1 VIEW, AP/PA ONLY EXAMINATION: Chest 1 view HISTORY: epigastric pain COMPARISON: None available. FINDINGS: The lungs are clear without edema or pneumonia. No pleural effusion or pneumothorax. Heart size is normal. IMPRESSION: 1. Clear lungs. Dictated on workstation # [id number] Dict: 11/09/21 1155 Trans: 11/09/21 1223 [facility] [id number] Interpreted by: CHRIS OGDEN MD Electronically signed by: Diagonstic Imaging: CT Plain Films/CT/US/NM/MRI: abdomen, pelvis Comments NAME: DIANE LANGSTON [facility] REC#: [id number] PT STATUS: REG ER : 1995 PHYSICIAN: JOE WARNER ADMIT DATE: 11/09/21/ER Signed Date of Exam:11/09/21 CT ABDOMEN/PELVIS WO PROCEDURE: CT abdomen and pelvis without contrast. TECHNIQUE: Multiple contiguous axial images were obtained through the abdomen and pelvis without the use of intravenous contrast. Auto Exposure Controls were utilized during the CT exam to meet ALARA standards for radiation dose reduction. INDICATION: Epigastric pain Lung bases demonstrate no evidence of pneumonia or edema. There is no effusion or pericardial collection. The liver demonstrates no focal intrahepatic abnormality. The patient is status post cholecystectomy. There is no abnormal biliary dilatation. The pancreas is unremarkable without adjacent fat stranding or fluid. The spleen is normal in size. There is no adrenal mass. The punctate nonobstructing calculus within the right kidney. There are no findings of hydronephrosis or perinephric fat stranding. The stomach is nondistended. There is a tiny hiatal hernia. There are no findings of small bowel dilation. There is no small bowel obstruction. There are no focal inflammatory changes present within the right lower quadrant. There is moderate stool within the colon. The uterus is unremarkable. The bladder is nondistended. There is a menstrual cup in place. There is no pelvic free fluid. The aorta is normal in caliber. There is no acute osseous abnormality. IMPRESSION: 1. No CT findings of an acute inflammatory or obstructive process within the abdomen or pelvis. 2. Tiny punctate nonobstructing right renal calculus. 3. Previous cholecystectomy without biliary dilatation. 4. No bowel obstruction or evidence to suggest appendicitis. 5. No free fluid, focal inflammation imaging or mesentery or evidence of free air. Dictated by: Dictated on workstation # [id number] Dict: 11/09/21 1215 Trans: 11/09/21 1244 [facility] [id number] Interpreted by: MAKEDA MAGALLON MD Electronically signed by: MAKEDA MAGALLON MD 11/09/21 1244 Reviewed: Reviewed by Me Departure Impression Primary Impression: Gastroenteritis Disposition: 01 HOME, SELF-CARE Condition: Improved Departure-Patient Inst. Decision time for Depature: 12:55 Referrals: NO,LOCAL PHYSICIAN (PCP/Family) Primary Care Physician Patient Instructions: Gastritis (DC) Add. Discharge Instructions: Clear liquid diet for the next 4-6 hours, then bland diet. Use Levsin every 8 hours for abdominal pain Imodium 2 every 4-6 hours for diarrhea. Follow up with Primary Care provider if not improving or worsens. Return to Emergency Dept for new, urgent healthcare needs. All discharge instructions reviewed with patient and/or family. Voiced understanding. Scripts Hyoscyamine Sulfate (Levsin-Sl) 0.125 Mg Tab.subl 0.125 MG SL Q8H PRN for PAIN-SEE DOSE INSTRUCTIONS, #15 TAB 0 Refills Prov: JOE WARNER 11/09/21 JOE WARNER Nov 09, 2021 11:38
[2021-11-09 11:39] LABS: BACTERIA,URINE NEGATIVE /HPF
[2021-11-09] MEDS ORDERED: PANTOPRAZOLE 40 MG (PROTONIX) VIAL IV STA (11:43)
[2021-11-09] MEDS ORDERED: NS IV 1000 ML 1,000 ML IV SCH (11:45)
[2021-11-09 11:54] LABS: AMYLASE 37 U/L (25-125)
[2021-11-09 12:03] LABS: LIPASE 10 U/L (8-78)
--- NOTE | 2021-11-09 12:24 | Diagnostic Imaging Report ---
EXAMINATION: Chest 1 view HISTORY: epigastric pain COMPARISON: None available. FINDINGS: The lungs are clear without edema or pneumonia. No pleural effusion or pneumothorax. Heart size is normal. IMPRESSION: 1. Clear lungs. Dictated by: Dictated on workstation # [id number]
--- NOTE | 2021-11-09 12:39 | Diagnostic Imaging Report ---
PROCEDURE: CT abdomen and pelvis without contrast. TECHNIQUE: Multiple contiguous axial images were obtained through the abdomen and pelvis without the use of intravenous contrast. Auto Exposure Controls were utilized during the CT exam to meet ALARA standards for radiation dose reduction. INDICATION: Epigastric pain Lung bases demonstrate no evidence of pneumonia or edema. There is no effusion or pericardial collection. The liver demonstrates no focal intrahepatic abnormality. The patient is status post cholecystectomy. There is no abnormal biliary dilatation. The pancreas is unremarkable without adjacent fat stranding or fluid. The spleen is normal in size. There is no adrenal mass. The punctate nonobstructing calculus within the right kidney. There are no findings of hydronephrosis or perinephric fat stranding. The stomach is nondistended. There is a tiny hiatal hernia. There are no findings of small bowel dilation. There is no small bowel obstruction. There are no focal inflammatory changes present within the right lower quadrant. There is moderate stool within the colon. The uterus is unremarkable. The bladder is nondistended. There is a menstrual cup in place. There is no pelvic free fluid. The aorta is normal in caliber. There is no acute osseous abnormality. IMPRESSION: 1. No CT findings of an acute inflammatory or obstructive process within the abdomen or pelvis. 2. Tiny punctate nonobstructing right renal calculus. 3. Previous cholecystectomy without biliary dilatation. 4. No bowel obstruction or evidence to suggest appendicitis. 5. No free fluid, focal inflammation imaging or mesentery or evidence of free air. Dictated by: Dictated on workstation # [id number]
[2021-11-09] MEDS ORDERED: HYOS0.1283 SL (13:21)
[2021-11-09] MEDS ORDERED: HYOSCYAMINE 0.125 MG (LEVSIN) TAB SL ONE (13:30)
[2021-11-09 13:40] VITALS: BP 114/81
== END 2021-11-09 13:41 | disposition home or self-care (01) ==
LOC: EDUNIT# 10:32 → ER 10:34
DX: K52.9 Noninfective gastroenteritis and colitis, unspecified (principal); E66.9 Obesity, unspecified; Z90.49 Acquired absence of other specified parts of digestive tract; Z68.41 Body mass index [BMI] 40.0-44.9, adult; Z28.310 Unvaccinated for COVID-19
CPT/HCPCS: 36415; 71045; 74176; 80053; 81000; 82150; 83690; 83735; 83874; 84484; 85025; 85610; 85730; 93005; 93041